=== PATIENT | female | born 1945 | race Caucasian/White ===

== ENCOUNTER 2025-09-02 10:25 | Inpatient (IN) | payer MEDICARE ==
[2025-09-02] MEDS ORDERED: Acetaminophen 325 MG TAB PO PRN (13:44)
[2025-09-02] MEDS ORDERED: Senokot S 8.6-50 MG TAB PO PRN (13:44)
[2025-09-02] MEDS ORDERED: HYDROcodone/Acetaminophen 5/325 mg Tablet PO PRN (13:44)
[2025-09-02] MEDS ORDERED: Melatonin 3 MG TAB PO PRN (13:53)
[2025-09-02] MEDS: oxyCODONE 5 MG TAB PO PRN (16:05)
[2025-09-02] MEDS: Rosuvastatin 10 MG TAB PO SCH (17:28)
[2025-09-02] MEDS: Ferrous Sulfate 325 MG TAB PO SCH (17:28)
[2025-09-02] MEDS: Melatonin 3 MG TAB PO PRN (20:22)
[2025-09-02] MEDS: Gabapentin 300 MG CAP PO SCH (20:22)
[2025-09-03 05:06] LABS: #Basophils 0.0 thou/uL (0.0-0.2); #Eosinophils 0.1 thou/uL (0.0-0.7); #Lymphocytes 1.8 thou/uL (1.20-3.40); #Monocytes 0.8 thou/uL (0.11-0.59); #Neutrophils 4.8 thou/uL (1.40-6.50); %Basophils 0.6 % (0.0-1.0); %Eosinophils 1.9 % (0.0-10.0); %Lymphocytes 24.1 % (21.0-51.0); %Monocytes 10.7 % (0.0-10.0); %Neutrophils 62.7 % (42.0-75.0); Hematocrit 23.9 % (36.0-47.0); Hemoglobin 8.6 g/dL (12.0-16.0); Mean Corpuscular Hemoglobin 31.7 pg (27.0-31.0); Mean Corpuscular Volume 88.3 fl (78.0-98.0); Platelet Count 258 10x3/uL (130-400); Red Blood Cell (RBC) Count 2.71 mill/uL (4.20-5.40); White Blood Cell (WBC) Count 7.6 10x3/uL (4.8-10.8)
[2025-09-03 05:24] LABS: ALT (SGPT) 11 U/L (Less than 34); AST (SGOT) 31 U/L (11-34); Albumin 3.0 g/dL (3.1-4.5); Alkaline Phosphatase 88 U/L (40-110); Anion Gap 12 mmol/L (10-20); BUN (Urea Nitrogen) 14 mg/dL (9.8-20.1); Bilirubin, Total 0.7 mg/dL (0.3-1.2); Calc. Creatinine Clearance 56 mL/min (70-130); Calcium 8.4 mg/dL (7.8-10.44); Carbon Dioxide 23 mmol/L (23-31); Chloride 103 mmol/L (98-107); Globulin 2.7 g/dL (2.4-3.5); Glucose 96 mg/dL (83-110); Potassium 4.4 mmol/L (3.5-5.1); Sodium 134 mmol/L (136-145)
[2025-09-03] MEDS: Gabapentin 100 MG CAP PO SCH (08:57)
[2025-09-03] MEDS: Calcium Carbonate 600 MG + Vit D TAB PO SCH (08:57)
[2025-09-03] MEDS: Cyanocobalamin (Vitamin B-12) 1,000 MCG TAB PO SCH (09:02)
[2025-09-03] MEDS: Thiamine 100 MG TAB PO SCH (09:02)
[2025-09-03] MEDS: Sertraline 100 MG TAB PO SCH (09:03)
[2025-09-03] MEDS: Pantoprazole 40 MG DR.TAB PO SCH (09:04)
[2025-09-03] MEDS: Ferrous Sulfate 325 MG TAB PO SCH (09:04)
[2025-09-03] MEDS: Enoxaparin 40 MG (0.4 mL) SYRINGE SC SCH (09:05)
[2025-09-03] MEDS: Senokot S 8.6-50 MG TAB PO SCH (20:51)
[2025-09-03] MEDS: Acetaminophen 500 MG TAB PO PRN (20:52)
[2025-09-04] MEDS: Bisacodyl 10 MG SUPP PR SCH (11:48)
[2025-09-04] MEDS: Naproxen 500 MG TAB PO SCH (15:22)
[2025-09-04] MEDS: FLU (Fluad Triv) 25-26 (65UP)PF 45 MCG/0.5 ML Syringe IM ONE (15:51)
[2025-09-05] MEDS: oxyCODONE 5 MG TAB PO PRN (00:36)
[2025-09-05 06:06] LABS: Anion Gap 14 mmol/L (10-20); BUN (Urea Nitrogen) 15 mg/dL (9.8-20.1); Calc. Creatinine Clearance 63 mL/min (70-130); Calcium 8.4 mg/dL (7.8-10.44); Carbon Dioxide 24 mmol/L (23-31); Chloride 102 mmol/L (98-107); Glucose 93 mg/dL (83-110); Potassium 4.3 mmol/L (3.5-5.1); Sodium 136 mmol/L (136-145)
[2025-09-06] MEDS: Methocarbamol 500 MG TAB PO PRN (12:34)
[2025-09-10 04:31] VITALS: BMI 26.2
[2025-09-14 08:33] VITALS: BMI 26.2
[2025-09-15 06:11] LABS: #Basophils 0.2 thou/uL (0.0-0.2); #Eosinophils 0.1 thou/uL (0.0-0.7); #Lymphocytes 1.6 thou/uL (1.20-3.40); #Monocytes 0.8 thou/uL (0.11-0.59); #Neutrophils 4.2 thou/uL (1.40-6.50); %Basophils 2.8 % (0.0-1.0); %Eosinophils 1.9 % (0.0-10.0); %Lymphocytes 23.2 % (21.0-51.0); %Monocytes 11.1 % (0.0-10.0); %Neutrophils 61.1 % (42.0-75.0); Hematocrit 28.3 % (36.0-47.0); Hemoglobin 9.7 g/dL (12.0-16.0); Mean Corpuscular Hemoglobin 30.3 pg (27.0-31.0); Mean Corpuscular Volume 88.9 fl (78.0-98.0); Platelet Count 385 10x3/uL (130-400); Red Blood Cell (RBC) Count 3.19 mill/uL (4.20-5.40); White Blood Cell (WBC) Count 6.8 10x3/uL (4.8-10.8)
[2025-09-15 06:21] LABS: Anion Gap 17 mmol/L (10-20); BUN (Urea Nitrogen) 11 mg/dL (9.8-20.1); Calc. Creatinine Clearance 66 mL/min (70-130); Calcium 9.1 mg/dL (7.8-10.44); Carbon Dioxide 21 mmol/L (23-31); Chloride 105 mmol/L (98-107); Glucose 93 mg/dL (83-110); Potassium 4.0 mmol/L (3.5-5.1); Sodium 139 mmol/L (136-145)
[2025-09-15 07:42] VITALS: BP 164/82; TEMP 98.5
== END 2025-09-15 11:20 | disposition home health service (06) | DRG 945 ==
LOC: NAV ACUTE 14:03
PROVIDERS: ADMIT Student in an Organized Health Care Education/Training Program; ATTEND Student in an Organized Health Care Education/Training Program
PROC: F07Z9ZZ Gait Training/Functional Ambulation Treatment (ICD-10-PCS; principal; 2025-09-02)
DX: R53.1 Weakness (principal); E87.1 Hypo-osmolality and hyponatremia; E03.9 Hypothyroidism, unspecified; F32.9 Major depressive disorder, single episode, unspecified; E78.5 Hyperlipidemia, unspecified; M81.0 Age-related osteoporosis without current pathological fracture; K44.9 Diaphragmatic hernia without obstruction or gangrene; F10.90 Alcohol use, unspecified, uncomplicated; I10 Essential (primary) hypertension; K59.00 Constipation, unspecified; G62.9 Polyneuropathy, unspecified; Z88.5 Allergy status to narcotic agent; Z98.890 Other specified postprocedural states; Z90.710 Acquired absence of both cervix and uterus; Z88.8 Allergy status to other drugs, medicaments and biological substances; Z79.890 Hormone replacement therapy; Z79.899 Other long term (current) drug therapy
CPT/HCPCS: 36415; 80048; 80053; 85025; 90653; J1650; Q0162